=== PATIENT | female | born 1940 | race African-American/Black ===

== ENCOUNTER 2019-08-14 10:06 | Day surgery (SDC) | payer OTHER ==
[2019-08-07 11:26] VITALS: BMI 33.2
--- NOTE | 2019-08-13 09:40 | HP ---
Admitting History and Physical - Primary Care Physician PCP: Stephen Rosenberg - Admission Chief Complaint: right atypia and DCIS History of Present Illness: Patient is a 78 yo female who was noted to have right breast calcifications at the 12 00 position which with stereo bx was c/w ADH bordering on low grade DCIS. Patient is now presenting for right breast WE with NL History Source: Patient Limitations to Obtaining History: No Limitations - Past Medical History Cardiovascular: Yes: HTN, Hyperlipdemia, Other (increase cholesterol) ...: No - Past Surgical History Past Surgical History: Yes: Tonsillectomy - Smoking History Smoking history: Former smoker Have you smoked in the past 12 months: No If you are a former smoker, when did you quit?: 1969 - Alcohol/Substance Use Hx Alcohol Use: No Home Medications - Allergies Allergies/Adverse Reactions: Allergies Allergy/AdvReac Type Severity Reaction Status Date / Time No Known Drug Allergies Allergy Verified 02/26/14 13:00 scallops AdvReac Uncoded 02/26/14 09:05 - Home Medications Home Medications: Ambulatory Orders Cholecalciferol (Vitamin D3) [Vitamin D3] 2,000 unit PO DAILY 02/19/14 Cod Liver Oil 1 each PO DAILY 02/19/14 Folic Acid 0.4 mg PO DAILY 02/19/14 Nebivolol HCl [Bystolic] 10 mg PO DAILY 02/19/14 Simvastatin [Zocor -] 10 mg PO DAILY 02/19/14 Triamterene/Hydrochlorothiazid [Triamterene-Hctz 37.5-25 mg Cp] 1 each PO DAILY 02/19/14 Aspirin [ASA -] 81 mg PO DAILY #30 tab.chew 02/26/14 Family Medical History Family History: Unremarkable Review of Systems - Review of Systems Constitutional: reports: No Symptoms Cardiovascular: reports: No Symptoms Respiratory: reports: No Symptoms Physical Examination Constitutional: Yes: Well Nourished, Calm Breast(s): Yes: Other (Patient has ptotic D-cup breasts without skin changes or nipple discharge. No suspicious masses or adenopathy were noted bilaterally.) Problem List - Problems (1) Breast cancer, right Code(s): C50.911 - MALIGNANT NEOPLASM OF UNSP SITE OF RIGHT FEMALE BREAST Assessment/Plan Plan: Right breast WE with NL
[2019-08-14] MEDS ORDERED: BUPIVACAINE HCL 0.25% 125 MG/50 ML VIAL ONE (13:02)
[2019-08-14] MEDS ORDERED: MIDAZOLAM HCL 2 MG/2 ML SINGLE DOSE VIAL ONE (13:19)
[2019-08-14] MEDS ORDERED: ceFAZolin SODIUM 1 GM VIAL ONE (13:23)
[2019-08-14] MEDS ORDERED: DEXAMETHASONE SOD PHOSPHATE 4 MG/1 ML VIAL ONE (13:23)
[2019-08-14] MEDS ORDERED: LIDOCAINE HCL/PF 2% SDV 5ML VIAL ONE (13:23)
[2019-08-14] MEDS ORDERED: KETOROLAC TROMETHAMINE 30 MG/1 ML VIAL ONE (13:23)
[2019-08-14] MEDS ORDERED: LIDOCAINE HCL 2% JELLY (5 ML/TUBE) ONE (13:23)
[2019-08-14] MEDS ORDERED: PROPOFOL 20 ML ONE ×2 (13:23→14:10)
[2019-08-14] MEDS ORDERED: ONDANSETRON 4 MG/2 ML VIAL ONE (13:23)
[2019-08-14] MEDS ORDERED: ePHEDrine SULFATE 50 MG/1 ML AMPULE ONE (13:46)
[2019-08-14] MEDS ORDERED: GUM MASTIC/STORAX/MSAL/ALCOHOL 1 DRP DROPSBTL MC ONE (13:47)
[2019-08-14] MEDS ORDERED: BUPIVACAINE HCL/PF 0.25% (2.5MG/ML) 10 ML VIAL IJ ONE (14:10)
[2019-08-14] MEDS ORDERED: ONDANSETRON 4 MG/2 ML VIAL IVPUSH PRN ×2 (14:33→14:56)
[2019-08-14] MEDS ORDERED: KETOROLAC TROMETHAMINE 30 MG/1 ML VIAL IVPUSH PRN (14:33)
[2019-08-14] MEDS ORDERED: DEXTROSE 5%-0.45% SALINE 1,000 ML IV SCH (14:45)
[2019-08-14] MEDS ORDERED: oxyCODONE HCL 5 MG TABLET PO PRN (14:56)
[2019-08-14] MEDS ORDERED: LACTATED RINGERS SOLUTION 1,000 ML IV SCH (15:00)
[2019-08-14 15:45] VITALS: TEMP 97.6
[2019-08-14 16:05] VITALS: BP 136/72; PULSE 74
--- NOTE | 2019-08-14 17:38 | OP ---
DATE OF OPERATION: 08/14/2019 PREOPERATIVE DIAGNOSIS: Right breast atypical duct hyperplasia. POSTOPERATIVE DIAGNOSIS: Right breast atypical duct hyperplasia, await permanent section. PROCEDURE PERFORMED: Right breast partial mastectomy with mammographic needle localization. ANESTHESIA: General laryngeal mask airway anesthesia. PRIMARY SURGEON: Lety Rosenberg MD SHIP MANAGER: JOSIE Borja COMPLICATIONS: There were no complications. INDICATIONS: Briefly, the patient is a 78-year-old postmenopausal -[place] female with no family history of breast or ovarian cancer. She has a history of undergoing a right breast major duct excision in 2013 for bloody nipple discharge, which just showed a benign papilloma and fibrosis. She more recently had mammography and ultrasound showing some calcifications in the right breast 12 o'clock region in July 2019, and stereotactic biopsies showed atypical duct hyperplasia bordering on low-grade DCIS. On slide review, it was felt to be just atypical duct hyperplasia. She could not undergo an MRI due to her size. She was advised on undergoing a right breast partial mastectomy with needle localization. DESCRIPTION OF PROCEDURE: The patient was brought in for the procedure on August 14, 2019. She first went to Radiology, where mammographically placed needle localization was performed, and was brought to the holding area. In the holding area, site verification was made and informed consent was obtained. She was brought into the operating room and laid on the OR table in the supine position. Venodynes were placed on the lower extremities prior to induction. She received 1 g of Ancef prior to incision. She underwent general laryngeal mask airway anesthesia, and the right breast was sterilely prepped and draped in the usual fashion, with the wire prepped in the field. A time-out was performed. Incision was made around the needle localization site around the 12 o'clock region of the right breast in a curvilinear fashion. Dissection was undertaken around the needle localization, and the breast tissue was completely removed with the wire in the middle of the specimen. The specimen was oriented with a long lateral and short superior suture, and specimen radiograph showed removal of the clip in question. Hemostasis was achieved. There was a separate M-shaped clip also seen in the specimen from a previous needle biopsy. Hemostasis was achieved, and the breast parenchyma was then undermined and reapproximated using 2-0 plain suture. The skin was closed using interrupted 3-0 deep dermal Vicryl suture and a running 4-0 subcuticular Biosyn suture. Mastisol and Steri-Strips were applied over the wound. The specimen was placed in formalin and sent to Pathology as a specimen. All sponge and needle counts were correct at the end of the case. Estimated blood loss was minimal. The patient had the laryngeal mask airway tube removed at the end of the case, and will be recovered in the postanesthesia care unit. She will be discharged home the same day once discharge criteria are met. She is to follow up in the office in 1 week for a formal wound and pathology check. LETY ROSENBERG M.D. [id number]
--- NOTE | 2019-08-17 15:19 | PATH ---
Surgical Pathology Report Patient Name: KIKO BARRERA [facility]. Rec. #: [id number] /Age/Gender: 1940 (Age: 78) / F Account: [id number] Location: [facility] Taken: 08/14/2019 Received: 08/14/2019 Reported: 08/17/2019 Physicians: Stephen Rosenberg M.D. Specimen(s) Received RIGHT BREAST WIDE EXCISION Clinical History Right breast atypia Final Diagnosis Breast, right, wide excision: Ductal carcinoma in situ (DCIS), Cribriform type, intermediate nuclear grade, with moderate necrosis and associated calcifications. DCIS is present in four of eight slides (4/8), with the largest contiguous focus of DCIS measuring 5 mm in greatest dimension, microscopically. Surgical margins are uninvolved by DCIS; DCIS is focally at 1 mm from the closest ((posterior) margin. Prior biopsy site changes are present. Pathologic stage (pTNM): pTis (DCIS) pNx. see also DCIS case summary below. Comments DCIS of the Breast: Surgical Pathology Cancer Case Summary (Based on AJCC TNM 8 th edition) Procedure _X_ Excision (less than total mastectomy) Specimen Laterality _X_ Right Size (Extent) of DCIS Estimated size (extent) of DCIS (greatest dimension using gross and microscopic evaluation): at least (millimeters) 5 mm Number of blocks with DCIS: 4 Number of blocks examined: 8 Histologic Type _X_ Ductal carcinoma in situ Architectural Patterns _X_ Cribriform Nuclear Grade _X_ Grade II (intermediate) Necrosis _X_ Present, focal (small /moderate foci or single cell necrosis) Margins _X_ Uninvolved by DCIS Distance from closest margin (millimeters): 1 mm (posterior) Regional Lymph Nodes _X_ No lymph nodes submitted or found Pathologic Stage Classification (pTNM, AJCC 8th Edition) Primary Tumor (pT) _X_ pTis (DCIS): Ductal carcinoma in situ. _X__ pNx Microcalcifications _X_ Present in DCIS Biomarker Studies Results of ER and WY studies performed on this specimen (block 1) at [facility] are as follows: ER (clone [id number] mouse monoclonal antibody by [employer]) : >95 % nuclear staining with strong intensity (positive). WY (clone16 mouse monoclonal antibody by [employer]): ~20 % nuclear staining with moderate to strong intensity (positive). Positive and negative controls (internal if applicable) show appropriate results. Formalin fixation and cold ischemic times are within current ASCO/CAP recommendations for ER, WY and Her2 testing. Electronically Signed Brigitte Reddy M.D. Gross Description Received in formalin, labeled "right breast wide excision," is a 4.0 x 3.2 x 2.8 cm. mcdonald-yellow, irregular, portion of fibroadipose tissue with a needle localization wire present. There is a short suture marking the superior aspect and a long suture marking the lateral aspect, per the surgeon. There is no skin present. The specimen is inked as follows: superior and lateral blue; inferior green; medial yellow; anterior red; deep black. The specimen is serially sectioned from superior to inferior. Sectioning reveals a 1.2 x 1.0 x 0.8 cm mcdonald, calcified lesion with surrounding fat necrosis. The lesion is focally at 0.2 cm from the lateral margin, 0.4 cm from the anterior margin and 0.9 cm from the deep margin. [employer] Supervisor sections are submitted in 8 cassettes as follows: [id number] and sequentially submitted lesion from superior to inferior (each with lateral, anterior and deep margins); 6-medial margin; 7-superior margin; 8-inferior margin. Time to formalin fixation: 11 minutes Total formalin fixation time: Approximately 28 hours. 08/15/2019 melva08/15/2019
== END 2019-08-14 16:30 | disposition home or self-care (01) ==
LOC: FASU 10:06
PROVIDERS: ATTEND Surgery Surgical Oncology
PROC: 0HBT0ZZ Excision of Right Breast, Open Approach (ICD-10-PCS; principal; 2019-08-14 13:54)
DX: D05.11 Intraductal carcinoma in situ of right breast (principal); N60.91 Unspecified benign mammary dysplasia of right breast; I10 Essential (primary) hypertension; E78.5 Hyperlipidemia, unspecified; Z87.891 Personal history of nicotine dependence
CPT/HCPCS: 19281; 76098-TC-FY; 88307-TC; 88342-TC; 94760